=== PATIENT | female | born 1945 | race Caucasian/White ===

== ENCOUNTER 2016-11-17 05:47 | Day surgery (SDC) | payer MEDICARE, OTHER ==
--- NOTE | 2016-11-15 10:45 | PCM.ANEPRE ---
Anesthesia Pre-Op Review Reason for Review: elevated bmi- stroke 03/02 minimal f/u, cardio hx- no recent f/u Additional Comments 70 y/o female scheduled for cysto with bilateral stent placement. Pt with BMI 66.4, h/o chronic a-fib, h/o CVA. Ok to proceed with low risk procedure in moderate risk patient. Will need DOS eval by anesthesiologist to look for any new cardiac findings. Chart Reviewed by: Bola Bryan MD Nov 15, 2016 10:45
[~2016-11-17] VITALS: Ht 152.4 cm; Wt 154.9 kg
[2016-11-17] VITALS (7 sets, daily range): BP systolic 120–144; BP diastolic 69–90; PULSE 78–88; RESP 14–19; O2SAT 93–100
[~2016-11-17 05:47] MED LIST: ACET1TAB12 PO; ACET325T51 PO; ALBU8.5H2 INHALATION; ASCO-294 PO; ATRV10T PO; CALC-952 PO; CHOL200047 PO; LAMO25TA PO; LOSA25TA21 PO; MECL-114 PO; MULT-1018 PO; SERT100T9 PO; WARF2.5T82 PO; WARF5TAB7 PO
[2016-11-17] MEDS ORDERED: MetoCLOpramide 5 mg/mL 2 mL Inj ONE (05:48)
[2016-11-17] MEDS ORDERED: Propofol 10,000 mCg/mL 20 mL Inj ONE (05:48)
[2016-11-17] MEDS ORDERED: Ondansetron 2 mg/mL 2 mL Inj ONE (05:48)
[2016-11-17] MEDS ORDERED: Levofloxacin 500 mg/100 mL D5W IV ONE (06:00)
[2016-11-17] MEDS: Lactated Ringer's 1,000 ML IV SCH ×2 (06:07→07:33)
[2016-11-17] MEDS ORDERED: Lactated Ringer's 1,000 ML IV SCH (07:18)
[2016-11-17] MEDS ORDERED: Lactated Ringer's 500 ML IV PRN (07:18)
[2016-11-17] MEDS ORDERED: Phenylephrine 10,000 mCg/mL Inj IVPUSH PRN (07:20)
[2016-11-17] MEDS ORDERED: fentaNYL-PF 50 mCg/mL 2 mL Inj IVPUSH PRN (07:20)
[2016-11-17] MEDS ORDERED: MetoCLOpramide 5 mg/mL 2 mL Inj IVPUSH PRN (07:20)
[2016-11-17] MEDS ORDERED: EPHEDrine Sulfate 50 mg/mL Inj IVPUSH PRN (07:20)
[2016-11-17] MEDS ORDERED: Ondansetron 2 mg/mL 2 mL Inj IVPUSH PRN (07:20)
[2016-11-17] MEDS ORDERED: HYDROmorphone 1 mg/mL Inj IVPUSH PRN (07:20)
[2016-11-17] MEDS ORDERED: Dexamethasone 4 mg/mL Inj IVPUSH PRN (07:20)
--- NOTE | 2016-11-17 07:21 | PCM.HPANE ---
Patient Data Surgeon Admitting Provider: Attending Provider:Faith Hou MD Primary Care Physician:Anna Other Provider:Yessenia Ta Anesthesia Reason for Visit Bilateral Kidney Stones Ht/WT & BMI Height (Feet): 5 Height (Inches): 0 Weight (Kilograms): 154.9 Body Mass Index 67.00 Allergies Coded Allergies: Penicillins (Verified Allergy, Severe, SWELLING AT SITE, 11/15/16) aspirin (Verified Allergy, Severe, WHEEZING, 11/15/16) ibuprofen (Verified Allergy, Severe, WHEEZING, 11/15/16) TAPE (Verified Allergy, Unknown, 11/15/16) lisinopril (Unverified Allergy, Unknown, cough, 05/06/15) nickel (Unverified Allergy, Unknown, 09/12/13) celecoxib (Verified Adverse Reaction, Intermediate, "stomach hurts really bad", 09/12/13) Past Anesthesia History Anesthesia History: Denies:: Abnormal Airway, Anesthesia Reactions, Difficult Intubation, Fam Anesthesia Reaction, Fam Malignant Hypertherm, Malignant Hyperthermia Diabetes History Hx Diabetes?: No MRSA MRSA: No Medications Blood Thinner: Coumadin Hypertension Medication: Yes Home Meds Incl Beta Blessing: No Reported Medications Warfarin Sodium 2.5 Mg Tablet2.5 Mg PO fri 30 Days Ref 0 11/15/16 Warfarin Sodium 5 Mg Tablet5 Mg PO 6xweek 30 Days Ref 0 11/15/16 Cholecalciferol (Vitamin D3) (Vitamin D3)2,000 Unit Capsule2,000 Unit PO DAILY 11/15/16 Ascorbate Calcium (Vitamin C)500 Mg Pyfsds115 Mg PO DAILY 11/15/16 Acetaminophen 325 Mg Aeqzvu942 Mg PO Q4H PRN tid Ref 0 11/15/16 Sertraline HCl (Sertraline)100 Mg Vqdwgk029 Mg PO DAILY 30 Days Ref 0 11/15/16 Albuterol HFA (Proair HFA)8.5 Gm Hfa.aer.ad2 Puffs INHALATION Q4H PRN For Shortness of Breath #1 INHALER 11/15/16 Multivitamin (Multi Vitamin Daily)1 Each Tablet1 Each PO DAILY 30 Days Ref 0 11/15/16 Meclizine (Bonine)25 Mg Tab.chew25 Mg PO PRN vertigo 11/15/16 Losartan Potassium 25 Mg Rbatga89 Mg PO DAILY 11/15/16 Lamotrigine 25 Mg Izbeez34 Mg PO TID Ref 0 11/15/16 Calcium Carbonate/Vitamin D3 (Calcium 500 mg Chewable Tablet)1 Each Tab.chew3 Each PO DAILY 11/15/16 Atorvastatin (Lipitor)10 Mg Tab5 Mg PO DAILY Ref 0 11/15/16 Discontinued Reported Medications Acetaminophen/Codeine 300-30mg (Tylenol/Codeine #3)1 Each Tablet1 Tablet PO Q8H PRN Pain Ref 0 11/15/16 Metoprolol Succinate ER 25 Mg Tab.er.24h25 Mg PO DAILY #30 02/25/16 Losartan Potassium 25 Mg Kpwyif24 Mg PO DAILY #90 02/25/16 Warfarin Sodium 5 Mg Tablet2.5 Mg PO We,Fr 30 Days Ref 0 02/25/16 Warfarin Sodium (Coumadin)5 Mg Tablet5 Mg PO Mo,,Th,Sa,Ritchie #90 02/25/16 Clindamycin HCl (Cleocin)300 Mg Csaoebs497 Mg PO Q8H #30 02/25/16 Discontinued Scripts Clopidogrel Bisulfate (Plavix)75 Mg Dbgpbz21 Mg PO DAILY 30 Days Ref 0 Prov:Demetrius Varela MD 02/27/16 Sertraline HCl (Sertraline)50 Mg Atlpgm741 Mg PO DAILY #30 TABLET Prov:Demetrius Varela MD 02/27/16 History History of ENT Problems?: Yes HEENT History: Positive for:: Dysphagia (cant drink carbonated beverages, some liquids) Hearing Problem Denies:: Abnormal Airway Cataracts Difficult Intubation Glaucoma Sinus Problem TMJ Denture Type: None Teeth Condition: Missing Teeth Hx of Heart Problems?: Yes Cardiovascular History: Positive for:: Cardiac Surgery (heart cath in july 2010 no disease) Congestive Heart Failure Hypertension Irregular Heartbeat (afib) Denies:: AICD Chest Pain Edema Heart Murmur Pacemaker Thrombophlebitis Valvular Heart Disease Hx of Respiratory Problem?: Yes Respiratory History: Positive for:: Asthma (thinks she does not have a problem , "allergies" ) Dyspnea (not walking- can walk into bathroom- but no further) Pulmonary Embolism (2001 - due to prempro per pt ) Use of Inhalers / NEBS Denies:: COPD Chest Surgery Emphysema Hemoptysis Pneumonia Tuberculosis Use of C-PAP Machine (FLAQUITO recommended- "government took it away") Hx Neurologic Problems?: Yes Neurological History: Positive for:: CVA (stroke- 02/2016- no residual- post seizures apr 2016, RIGHT SIDED WEAKNESS, SPEACH AT TIME ALTERED) Denies:: Alzheimer's Disease Dementia Dizziness Headaches Multiple Sclerosis Parkinson's Disease Seizures Hx of GI Problems?: Yes Hx of Problems?: Yes Genitourinary History: Positive for:: Kidney Stones (bilateral stones current problem, hx of stones-passed spontaneously) Denies:: Urinary Tract Infection Female Hx: Denies:: Currently (post menopausal ) Problems with Breasts? Skin History: Denies:: History Skin Disorders? Pressure Ulcers Hx Musculoskeletal Problems?: Yes Musculoskeletal History: Positive for:: Degenerative Joint Osteoarthritis (both shoulders and knees, right hand) Denies:: Back Injury Fibromyalgia Joint Replacement Musculoskeletal Trauma Myasthenia Gravis Systemic Lupus Hx of Psycho/Social Problems?: Yes Psycho Social History: Positive for:: Hx Depression Denies:: Anxiety Bipolar Disorder Suicide Attempt Hx Surgeries?: Yes (gallbladder) Hx Any Other Health Problems?: Yes Other History: Positive for:: Hospitalization Denies:: Cancer Endocrine Disease Thyroid Disease History Blood Transfusions: Positive for:: Accept Blood Products? Denies:: Blood Transfuse Reaction Blood Transfusions Hx Diabetes: No Hx Alcohol Use: NoHx Substance Use: No Smoking Status: Never Smoker Have You Smoked inLast 12 mo: No Stop/Bang Treated for Sleep Apnea?: No Do You Have a CPAP Machine?: No S-Snoring: Do You Snore Loudly: Yes T-Tired: feel tired, fatigued: Yes O-Obsered: Observed not breath: Yes P-Blood Pressure: treated: Yes B- Body Mass Index > 35 kg/m2: Yes A- Age over 50: Yes N- Neck Large Circumference: Yes G- Gender Male: No FLAQUITO Total Score: 7 FLAQUITO Risk Assessment: High Risk, =/>3 Yes Risk Assessment Category Category 1A: Patient has history of documented sleep apnea, and HAS NOT received any narcotic, sedative or anesthesia administration during this stay. Category 1B: Patient has history of documented sleep apnea, and HAS received any narcotic , sedative or anesthesia administration during this stay Category 2: Patient has SUSPECTED Obstructive Sleep Apnea, and HAS received any narcotic , sedative or anesthesia administration during this stay. Category 3: Patient has SUSPECTED Obstructive Sleep Apnea and HAS NOT received narcotic, sedative or anesthesia administration during this stay. Category 4: Outpatient in Procedural Areas with known sleep apnea or who screen positive for High Risk via the STOP/BANG questionnaire. Exam Exam Vital Signs Vital Signs Date Time Temp Pulse Resp B/P Pulse Ox O2 Delivery O2 Flow Rate FiO2 11/17/16 06:20 36.1 83 18 140/75 96 Room Air General Appearance: Oriented X3 HEENT/AIRWAY: MP 3 Lungs: Normal Air Movement Heart: Other Meds/Labs/Diagnostics Admission Meds Current Medications Lactated Ringer's (Lr) 1,000 ml @ 120 mls/hr Q8H20M IV Last administered on t 06:07; Start 11/17/16 at 05:00; Stop 11/17/16 at 13:19 Labs Test 11/17/16 07:02 Plan Impression Patient chart reviewed, patient interviewed and anesthestic plan with risks, benefits, and alternatives discussed, and informed consent obtained. ASA Physical Status: ASA4 Life Threatening Anesthetic Plan: GA Bene/Risks/Altern/Consents: Yes HP Complete Prior to Induction: Yes Hesham Fry MD Nov 17, 2016 07:21
[2016-11-17 07:31] LABS: INR 2.41 ratio
[2016-11-17] MEDS ORDERED: Iopamidol-300 50 mL Inj IV ONE (07:33)
[2016-11-17] MEDS ORDERED: HYDROcodone-APAP 5-325 mg Tablet PO PRN (08:25)
--- NOTE | 2016-11-17 09:09 | OP ---
[address] [address] OPERATIVE REPORT PATIENT: ROC GRACIA : 1945 MR#: [id number] ADMIT: 11/17/2016 JOB ID: [id number] DATE OF SURGERY: 11/17/2016 SURGEON: Faith Hou M.D. MATH SPECIALIST: None. PREOPERATIVE DIAGNOSIS(ES): Bilateral urolithiasis. POSTOPERATIVE DIAGNOSIS(ES): Bilateral urolithiasis. PROCEDURE PERFORMED: 1. Cystoscopy and bilateral retrograde pyelogram. 2. Bilateral ureteral stent placement. FINDINGS: 1. Normal-appearing left retrograde pyelogram. 2. Full right renal pelvis with opacity consistent with renal pelvis stone. ANESTHESIA: LMA. ESTIMATED BLOOD LOSS: None. SPECIMENS: None. COMPLICATIONS: None. CONDITION: Stable. INDICATION FOR PROCEDURE: The patient is a 70-year-old woman with morbid obesity and bilateral urolithiasis. The urolithiasis appeared to be partially obstructing bilaterally. She had had a BUN and creatinine that was normal. She now presents for the aforementioned procedure. DESCRIPTION OF PROCEDURE: After informed consent was obtained, the patient was taken to the operating room. A time-out was performed identifying correct patient, surgical site and procedure. General anesthesia was smoothly induced. She was placed in the lithotomy position and all pressure points were identified and appropriately padded. Her genitals were then prepped and draped in the usual sterile fashion. She was given intravenous antibiotics just prior to the start of the procedure. A 22-[place] rigid cystoscope was applied to the patient's urethra and advanced into the bladder. The left ureteral orifice was cannulated with a 5-[place] open-ended Pollack catheter. A retrograde pyelogram was performed. It appeared normal. A Sensor tip wire was used to cannulate the Pollack and advanced into the renal pelvis as seen under fluoroscopy. The Pollack was then backloaded off the wire. A 6 x 22 double-J ureteral stent was loaded over the wire and advanced to the renal pelvis as seen under fluoroscopy. The wire was subsequently removed leaving a nice coil in the patient's bladder as seen under direct vision. Attention was then turned to the right ureteral orifice and a retrograde pyelogram was performed in a similar fashion as to the left side. A stent was also placed in a similar fashion. There was a nice coil in the renal pelvis as seen under fluoroscopy, and under direct vision, there was a nice coil in the bladder. The bladder was drained. The patient was then reversed from general anesthesia and taken to the PACU in good and stable condition. ESSENCE
--- NOTE | 2016-11-17 09:12 | PCM.ANEP1 ---
Post Anesthesia PACU Phase 1 Assessment Vital Signs Vital Signs Date Time Temp Pulse Resp B/P Pulse Ox O2 Delivery O2 Flow Rate FiO2 11/17/16 08:35 88 16 141/88 94 Room Air 11/17/16 08:30 36.0 84 19 139/90 96 Room Air 11/17/16 08:25 83 14 120/69 96 Room Air 11/17/16 08:20 85 19 144/73 100 Simple Mask 8 11/17/16 08:15 36.0 78 15 136/79 100 Simple Mask 8 11/17/16 06:20 36.1 83 18 140/75 96 Room Air Anesthetic Administered: GA Level of Alertness: Awake, talking Pain: No Nausea or Vomiting: No CV Function & Hydration Stable: Yes Airway Device: Lungs: Normal Air Movement PACU Phase 2 Assessment Patient Instructions Provided: N/A Hesham Fry MD Nov 17, 2016 09:12
--- NOTE | 2016-11-17 10:01 | DRSVH ---
PROCEDURE: X-RAY RETROGRADE UROGRAPHY INDICATIONS: BILATERAL STENT PLACEMENT TECHNIQUE: 2 intra-operative images acquired by the Urology service. COMPARISON: None. FINDINGS: Exam limited to submitted images. Within these limits, there is partial opacification of the right pelvis. IMPRESSION: Limited exam demonstrating partial opacification of the right renal pelvis. Dictated by: Ronald Portillo [facility] Interpreted: Jose Medina MD on 11/17/2016 at 9:18 Approved by: Jose Medina M.D. on 11/17/2016 at 9:59
--- NOTE | 2016-11-17 10:02 | DRSVH ---
PROCEDURE: X-RAY RETROGRADE UROGRAPHY INDICATIONS: BILATERAL STENT PLACEMENT TECHNIQUE: 3 intra-operative images acquired by the Urology service. COMPARISON: [facility], CR, XR RETROGRADE UROGRAPHY, 11/17/2016, 7:57. FINDINGS: Exam limited to 3 submitted images. Within these limits, there is partial opacification o f the left renal collecting system which appears grossly normal. Visualized portions of the ureter a re normal course and caliber. No extravasation of contrast media. IMPRESSION: Normal appearance of the left renal collecting system and proximal ureter were visualized . Dictated by: Ronald Portillo [facility] Interpreted: Jose Medina MD on 11/17/2016 at 9:20 Approved by: Jose Medina M.D. on 11/17/2016 at 9:59
== END 2016-11-17 23:59 | disposition home or self-care (01) ==
LOC: SAS 05:47
PROVIDERS: ATTEND Urology
PROC: 0T788DZ Dilation of Bilateral Ureters with Intraluminal Device, Via Natural or Artificial Opening Endoscopic (ICD-10-PCS; principal; 2016-11-17 07:15)
DX: N20.0 Calculus of kidney (principal); E66.01 Morbid (severe) obesity due to excess calories; Z68.44 Body mass index [BMI] 60.0-69.9, adult; I48.2 Chronic atrial fibrillation; Z86.73 Personal history of transient ischemic attack (TIA), and cerebral infarction without residual deficits; I50.9 Heart failure, unspecified; I10 Essential (primary) hypertension; G47.33 Obstructive sleep apnea (adult) (pediatric); Z79.01 Long term (current) use of anticoagulants
CPT/HCPCS: 36415; 52332; 74420; 85610; C2617; J2405; J2765; J7120; Q9967